=== PATIENT | female | born 1960 | race Caucasian/White ===

== ENCOUNTER 2017-09-03 18:23 | Emergency (ER) | payer OTHER ==
[~2017-09-03] VITALS: Ht 162.6 cm; Wt 66.7 kg
[2017-09-03 18:55] VITALS: Ht 162.6 cm; Wt 66.7 kg
--- NOTE | 2017-09-03 21:08 | ERD ---
ER Documentation Chief Complaint Chief Complaint CP and l arm pain starting today with PEÑA HPI This is a 57-year-old female with a history of high blood pressure and daily back her use who is presenting with acute onset left-sided chest pain radiating into the left arm associated with a headache that started this afternoon. The patient endorses waxing and waning symptoms for 1-2 months, but it felt stronger today. She describes her chest pain as sharp and burning sensation. He does not endorse associated shortness of breath or diaphoresis. She does have occasional lightheadedness associated with this. She does also endorse chronic epigastric pain. She does not know if it is associated with eating or not. She has not been nauseated and has not vomited. The patient does report a generalized burning sensation in her head as well that is waxing and waning in nature. She currently does not endorse any headache or vision changes. Her chest pain has also significantly improved. It is now down to a mild dull ache. The patient denies feeling sick recently. The patient denies fever or chills. The patient does not endorse neck or back pain. The patient denies abdominal pain or changes to bowel movements. She does endorse increased urinary frequency with some suprapubic discomfort. The patient has had no focal deficits. The patient has had no weakness or numbness or tingling to the face or extremities. ROS All systems reviewed and are negative except as per history of present illness. Medications Home Meds Reported Medications Cyanocobalamin* (Vitamin B12*) Unknown Strength Tab, 1 TAB PO DAILY, TAB 09/03/17 Losartan Potassium* (Losartan Potassium*) 25 Mg Tablet, 25 MG PO DAILY, TAB 09/03/17 Allergies Allergies: Coded Allergies: No Known Allergy (Unverified , 09/03/17) PMhx/Soc History of Surgery: No Hx Neurological Disorder: No Hx Respiratory Disorders: Yes Hx Cardiac Disorders: Yes (Hypertension) Hx Psychiatric Problems: No Hx Miscellaneous Medical Probl: No Hx Alcohol Use: No Hx Substance Use: No Hx Tobacco Use: No FmHx Family History: No coronary disease, No diabetes Physical Exam Vitals Vital Signs Date Time Temp Pulse Resp B/P Pulse Ox O2 Delivery O2 Flow Rate FiO2 09/03/17 21:15 Nasal Cannula 09/03/17 21:13 98.6 78 16 148/75 99 Room Air 09/03/17 18:55 98.6 78 16 178/77 99 Physical Exam Const: No apparent distress, well-developed, well-nourished Head: Normocephalic, Atraumatic Eyes: Normal Conjunctiva. Extraocular movements intact. Pupils equal, round and reactive to light ENT: Normal External Ears, Nose and Mouth. Neck: Full range of motion. No meningismus. Resp: Clear to auscultation bilaterally, No wheezes, rales or rhonchi Cardio: Regular rate and rhythm. No murmurs, rubs or gallops Abd: Soft, non tender, non distended. Normal bowel sounds Skin: No petechiae or rashes Back: No midline tenderness. No CVA tenderness Ext: No cyanosis, or edema Neur: Awake and alert, oriented 4. Cranial nerves intact. No facial droop. Normal strength, sensation and coordination. Psych: Tearful at times but unwilling to go into detail to discuss why Result Diagram: 09/03/17210909/03/172109 Results 24 hrs Laboratory Tests Test 08/04/17 22:55 09/03/17 21:10 09/04/17 03:30 Urine Color YELLOW Urine Clarity CLEAR Urine pH 6.0 Urine Specific [place] 1.012 Urine Ketones NEGATIVEmg/dL Urine Nitrite NEGATIVEmg/dL Urine Bilirubin NEGATIVEmg/dL Urine Urobilinogen NEGATIVEmg/dL Urine Leukocyte Esterase 1+Dwight/ul Urine Microscopic RBC 1/HPF Urine Microscopic WBC 5/HPF Urine Squamous Epithelial Cells FEW/HPF Urine Hemoglobin NEGATIVEmg/dL Urine Glucose NEGATIVEmg/dL Urine Total Protein NEGATIVEmg/dl White Blood Count 10.910^3/ul Red Blood Count 4.7410^6/ul Hemoglobin 14.1g/dl Hematocrit 41.0% Mean Corpuscular Volume 86.5fl Mean Corpuscular Hemoglobin 29.7pg Mean Corpuscular Hemoglobin Concent 34.4g/dl Red Cell Distribution Width 13.6% Platelet Count 84224^3/UL Mean Platelet Volume 10.1fl Neutrophils % 54.3% Lymphocytes % 32.7% Monocytes % 8.7% Eosinophils % 3.3% Basophils % 0.6% Nucleated Red Blood Cells % 0.0/100WBC Neutrophils # 5.910^3/ul Lymphocytes # 3.610^3/ul Monocytes # 1.010^3/ul Eosinophils # 0.410^3/ul Basophils # 0.110^3/ul Nucleated Red Blood Cells # 0.010^3/ul Prothrombin Time 11.9Sec Prothrombin Time Ratio 0.9 INR International Normalized Ratio 0.87 Activated Partial Thromboplast Time 31.0Sec Sodium Level 140mmol/L Potassium Level 3.9mmol/L Chloride Level 106mmol/L Carbon Dioxide Level 26mmol/L Anion Gap 12 Blood Urea Nitrogen 14mg/dl Creatinine 0.78mg/dl Glucose Level 94mg/dl Calcium Level 9.6mg/dl Troponin I < 0.012ng/ml < 0.012ng/ml B-Type Natriuretic Peptide 91PG/ML Creatine Kinase 61IU/L Creatine Kinase Index 0.8 Creatinine Kinase MB (Mass) 0.50ng/ml Current Medications Medications (Trade) Dose Ordered Sig/Al Route PRN Reason Start Time Stop Time Status Last Admin Dose Admin Aspirin (Aspirin) 324 mg ONCE ONCE PO 09/03/17 21:30 09/03/17 21:31 DC 09/03/17 21:20 Procedures/MDM MDM The patient's presentation warrants further investigation. The patient endorses chest pain requires a cardiac workup. She is tearful in the room at times, but she did not want to go into detail. There may be a component of stress or anxiety, but I would like to rule out a cardiac pathology before increasing my suspicion for a diagnosis of exclusion. The patient currently only endorses mild chest aching. Her other symptoms have resolved. The patient has normal vital signs. LABS The patient's blood work was obtained and reviewed. The patient's CBC shows mild leukocytosis and no left shift. I suspect this to be reactive. The patient is afebrile and does not appear systemically ill. I do not suspect a systemic infection. The patient is not anemic today. The patient's platelet count is unremarkable. The patient's CMP shows no signs of metabolic or electrolyte emergencies. The patient has unremarkable renal and hepatic function testing. INR is within normal limits. Troponin is negative. UA is pending. EKG EKG read by me: Rate/Rhythm: Regular rate and rhythm at a rate of 79 bpm Intervals: Normal Wise: Normal Impression: No evidence of ischemia or arrhythmia IMAGING CXR FINDINGS: The heart and mediastinum are within normal limits. The lungs are clear. There is no pleural effusion or pneumothorax. Degenerative changes of the spine and shoulder joints are present. IMPRESSION: No acute cardiopulmonary disease. Electronically viewed and signed by Bernard May Physician on 09/03/2017 21:57 TREATMENT/DISPOSITION Patient was given aspirin in the emergency department. Her symptoms resolved during evauation. The patient's HEART score is less than or equal to 3. The patient's troponin and EKG are reassuring. This stratifies the patient into the low risk (<1%) group for an major adverse cardiac event within the next 30 days. I have low suspicion for acute coronary syndrome. The patient's chest xray does not reveal pneumonia or pneumothorax or pleural effusions or pulmonary edema. She does not have a widened mediastinum and does not have signs or symptoms concerning for thoracic aortic aneurysm or dissection. She does not have pneumomediastinum or signs concerning for esophageal tear or rupture. She has no clinical or radiographic signs of paricardial effusion or tamponade. She does not have pneumoperitoneum and I have decreased suspicion of viscus perforation and a possibility of referred pain. The patient does not have a history of heart failure and I have low suspicion for this. The patient does not have a diagnosis of COPD and is not wheezing today. I have low suspicion for PE. She is not tachypneic or hypoxic. She is breathing comfortably and without pleuritc pain. Her heart rate is unremarkable. She is not on hormonal therapy. She has no history of clotting or bleeding disorders. She has no calf tenderness. She has had no hemoptysis. Anxiety is a possibility that may be followed up as an outpatient as well. Shared decision making was enacted. The risks and benefits of admission and discharge were discussed with the patient and it was ultimately decided that the patient would be discharged with close outpatient follow up and evaluationg for functional testing within 72 hours. At this time, I feel that the patient stable for discharge. The patient will need follow-up with his primary care physician in 1-3 days. The patient will be given strict precautions with which to return to the emergency department. The patient's blood pressure was elevated at greater than 120/80 while in the emergency department. The patient was otherwise stable with no evidence of hypertensive urgency or emergency or end organ damage. The patient does not require admission for blood pressure control. I have discussed with the patient the risks of hypertension. I have advised the patient to follow up with the primary care physician for outpatient monitoring and treatment for hypertension in 2-3 days. I have instructed the patient to return to the ER for any new or worsening symptoms including chest pain, shortness of breath, headache, blurred vision, confusion, nausea, vomiting or LOC. Disclaimer: Inadvertent spelling and grammatical errors are likely due to EHR/ dictation software use and do not reflect on the overall quality of patient care. Note that the electronic time recorded on this note does not necessarily reflect the actual time of the patient encounter. Departure Diagnosis: Primary Impression: Chest pain Chest pain type: unspecified Qualified Code: R07.9 - Chest pain, unspecified type Additional Impression: Tearfulness Condition: Stable BING CRISTOBAL MD Sep 03, 2017 21:08
[2017-09-03 21:13] VITALS: BP 148/75; PULSE 78; RESP 16; TEMP 98.6
[2017-09-03 21:20] LABS: BASOPHIL # 0.1 10^3/ul (0.0-0.1); BASOPHILS % 0.6 % (0.0-2.0); EOSINOPHILS # 0.4 10^3/ul (0.0-0.5); EOSINOPHILS % 3.3 % (0.0-7.0); HEMOGLOBIN 14.1 g/dl (12.0-16.0); LYMPHOCYTES # 3.6 10^3/ul (0.8-2.9); LYMPHOCYTES % 32.7 % (15.0-51.0); MEAN CORPUSCULAR HEMOGLOBIN 29.7 pg (29.0-33.0); MEAN CORPUSCULAR HGB CONC 34.4 g/dl (32.0-37.0); MEAN CORPUSCULAR VOLUME 86.5 fl (82.0-101.0); MEAN PLATELET VOLUME 10.1 fl (7.4-10.4); MONOCYTES % 8.7 % (0.0-11.0); NEUTROPHIL # 5.9 10^3/ul (1.6-7.5); NEUTROPHILS % 54.3 % (39.0-77.0); PLATELET COUNT 356 10^3/UL (140-415); RED BLOOD COUNT 4.74 10^6/ul (4.20-5.40); RED CELL DISTRIBUTION WIDTH 13.6 % (11.5-14.5); WHITE BLOOD COUNT 10.9 10^3/ul (4.8-10.8)
[2017-09-03] MEDS ORDERED: LOSA25TA5 PO (21:30)
[2017-09-03] MEDS ORDERED: ASPIRIN 81 MG TAB PO ONE (21:30)
[2017-09-03] MEDS ORDERED: CYAN100T PO (21:32)
[2017-09-03 21:38] LABS: INR 0.87; PROTIME 11.9 Sec (11.9-14.9); PT RATIO 0.9
[2017-09-03 21:41] LABS: ANION GAP 12 (8-16); BLOOD UREA NITROGEN 14 mg/dl (7-20); CALCIUM 9.6 mg/dl (8.4-10.2); CARBON DIOXIDE 26 mmol/L (21-31); CHLORIDE 106 mmol/L (97-110); CREATININE 0.78 mg/dl (0.44-1.00); GLUCOSE 94 mg/dl (70-220); POTASSIUM 3.9 mmol/L (3.5-5.1); SODIUM 140 mmol/L (135-144)
[2017-09-03 21:52] LABS: B-TYPE NATRIURETIC PEPTIDE 91 PG/ML (0-125)
--- NOTE | 2017-09-03 21:57 | RADRPT ---
PROCEDURE: XR Chest. CLINICAL INDICATION: Chest pain. TECHNIQUE: Single frontal view of the chest was obtained COMPARISON: None FINDINGS: The heart and mediastinum are within normal limits. The lungs are clear. There is no pleural effusion or pneumothorax. Degenerative changes of the spine and shoulder joints are present. IMPRESSION: 1. No acute cardiopulmonary disease. RPTAT:AAJJ Physician Sarika Date Time Electronically viewed and signed by Bernard May Physician on 09/03/2017 21:57 QL/
[2017-09-03 22:02] LABS: TROPONIN-I < 0.012 ng/ml (0.00-0.12)
[2017-09-04 01:05] LABS: ADD UMIC YES; UR ASCORBIC ACID NEGATIVE (NEGATIVE); UR BILIRUBIN (Dip) NEGATIVE (NEGATIVE); UR BLOOD (Dip) NEGATIVE (NEGATIVE); UR CLARITY CLEAR (CLEAR); UR COLOR YELLOW (YELLOW); UR GLUCOSE (Dip) NEGATIVE (NEGATIVE); UR KETONES (Dip) NEGATIVE (NEGATIVE); UR LEUKOCYTE ESTERASE (Dip) 1+ Leu/ul (NEGATIVE); UR NITRITE (Dip) NEGATIVE (NEGATIVE); UR RBC 1 /HPF (0-5); UR SPECIFIC GRAVITY (Dip) 1.012 (1.003-1.030); UR SQUAMOUS EPITHELIAL CELL FEW /HPF (FEW); UR TOTAL PROTEIN (Dip) NEGATIVE (NEGATIVE); UR UROBILINOGEN (Dip) NEGATIVE (NEGATIVE)
[2017-09-04 04:13] LABS: CREATINE KINASE 61 IU/L (23-200)
[2017-09-04 04:29] LABS: TROPONIN-I < 0.012 ng/ml (0.00-0.12)
== END 2017-09-04 04:29 | disposition home or self-care (01) ==
LOC: E/R 18:23
DX: R07.9 Chest pain, unspecified (principal); R45.86 Emotional lability; I10 Essential (primary) hypertension
CPT/HCPCS: 36415; 71010; 80048; 81001; 82550; 82553; 83880; 84484; 85025; 85610; 85730; 93005